=== PATIENT | male | born 1990 | race Caucasian/White ===

== ENCOUNTER 2017-09-28 12:31 | Emergency (ER) | payer SELFPAY ==
[~2017-09-28 12:31] MED LIST: PROT40TA PO
[2017-09-28 12:33] VITALS: BP 105/56; PULSE 82; RESP 16; TEMP 98.9; O2SAT 98
--- NOTE | 2017-09-28 13:55 | PD ---
HPI Chief Complaint: Cold / Flu Symptoms Time Seen by Provider: 13:42 Travel History International Travel<30 days: No Contact w/Intl Traveler<30days: No Traveled to known affect area: No History of Present Illness HPI 26-year-old male presents for evaluation of congestion, dyspnea, myalgias, nausea, one episode of emesis. Symptoms started this morning. He reports that he had similar symptoms last week which resolved but then return today. Denies any abdominal pain, diarrhea, rash, IV drug use, recent travel. No sick contacts. No other complaints at this time. 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 HEAD: Atraumatic. Normocephalic. EYES: Pupils equal and round. No scleral icterus. No injection or drainage. ENT: No nasal bleeding or discharge. Mucous membranes pink and moist. No oropharyngeal erythema or exudate. NECK: Trachea midline. No JVD. No lymphadenopathy. Neck supple full range of motion. CARDIOVASCULAR: Regular rate and rhythm. No murmur appreciated. RESPIRATORY: No accessory muscle use. Clear to auscultation. Breath sounds equal bilaterally. GASTROINTESTINAL: Abdomen soft, non-tender, nondistended. Hepatic and splenic margins not palpable. Data Data Last Documented VS Vital Signs Date Time Temp Pulse Resp B/P (MAP) Pulse Ox O2 Delivery O2 Flow Rate FiO2 09/28/17 12:33 98.9 82 16 105/56 (72) 98 Orders Orders Influenzae A/B Antigen (09/28/17 13:50) Ondansetron Odt (Zofran Odt) (09/28/17 14:00) Chest, Pa & Lat (09/28/17 ) MDM Medical Decision Making Medical Screen Exam Complete: Yes Emergency Medical Condition: Yes Medical Record Reviewed: Yes Differential Diagnosis Influenza, pneumonia, bronchitis, sinusitis Narrative Course The patient was given Zofran. Chest x-ray and influenza antigen test were ordered however the patient apparently left pending the influenza antigen results. AMA. Diagnosis Primary Impression: Left against medical advice Sourav Ramirez Sep 28, 2017 13:55
[2017-09-28] MEDS ORDERED: ONDANSETRON ODT 4 MG TAB PO ONE (14:00)
--- NOTE | 2017-09-28 14:14 | RADRPT ---
EXAM DATE/TIME: 09/28/2017 14:01 [facility] COMPARISON: No previous studies available for comparison. INDICATIONS : Shortness of breath and flu like symptoms for 1 week. MEDICAL HISTORY : None. SURGICAL HISTORY : None. ENCOUNTER: Initial ACUITY: 1 week PAIN SCORE: 3/10 LOCATION: Bilateral chest FINDINGS: PA and lateral views of the chest demonstrate the lungs to be symmetrically aerated without evidence of mass, infiltrate or effusion. The cardiomediastinal contours are unremarkable. Osseous structure s are intact. CONCLUSION: No acute cardiopulmonary disease. Manfred Eddy MD on September 28, 2017 at 14:12 Board Certified Radiologist. This report was verified electronically.
== END 2017-09-28 15:09 | disposition left against medical advice (07) ==
LOC: NEPK 12:31
DX: R06.00 Dyspnea, unspecified (principal); Z53.21 Procedure and treatment not carried out due to patient leaving prior to being seen by health care provider; F17.210 Nicotine dependence, cigarettes, uncomplicated
CPT/HCPCS: 71046; 87804; 99284